=== PATIENT | male | born 1945 | race Caucasian/White ===

== ENCOUNTER 2017-01-03 16:10 | Observation (INO) | payer OTHER ==
--- NOTE | ~2017-01-03 | HP ---
History And Physical [place] [address] [facility] [place]. [address] NAME: [address]O L[address] : 45 STATUS : ADM Lindsey PAT#: [id number] AGE: 71 ADM/REG DATE : 01/03/17 MR#: [id number] REPORT SERV DATE: 01/04/17 DICTATED BY: KHADAR PARRISH DATE: 01/04/17 REPORT STATUS : Draft TRANSCRIBED BY: MODJagruti DATE: 01/04/17 DATE OF ADMISSION: 01/03/2017 [employer]IMARY [employer] ACCOUNT ASSISTANT: Felton Orosco M.D. CHIEF COMPLAINT: Exertional chest pain. HISTORY OF PRESENT ILLNESS: A very pleasant 71-year-old white male with known history of CAD, status post stents twice to RCA in 2008 and 2011 with subsequent CABG in 06/2015 x4 with PAIZ to LAD, vein graft to first diagonal, vein graft to the second obtuse marginal, and vein graft to PLV of RCA. The patient states that he was in his usual state of health, but has noticed approximately 10 days ago while in cardiac rehab some exertional chest pain that resolved with decreasing the exertion of his workout. He reports 2-3 subsequent episodes since that time. On 01/03, while walking [place] an incl[place], he became breathless and had some chest tightness and lightheadedness that was somewhat similar to previous events, but not as intense. He denies any nausea, diaphoresis, or belching. He does report some shortness of breath and lightheadedness. He did take one nitroglycerin yesterday with relief of his symptoms. At its most intense, he rated his chest discomfort a 2/10. At the time of interview in the [facility], he is pain free. The episode lasted approximately 5 minutes in duration and was relieved with nitroglycerin. Previous episodes have all been managed by reducing his exercise or with rest. Yesterday was his only use of nitroglycerin. The patient denies any personal history of myocardial infarction, stroke, DVT, or pulmonary embolus. The patient denies any recent fever or chills, no palpitations, no syncopal episodes. Denies PND or orthopnea. PAST MEDICAL HISTORY: 1. CAD. a. Stents to RCA in 2008. b. 06/[address] Castellanos with PAIZ to LAD, vein graft to first diagonal, vein graft to the second OM, and vein graft to PLV of RCA. 2. Hypertension. 3. Dyslipidemia. 4. GERD. 5. Denies diabetes. 6. Myelodysplastic syndrome followed by Dr. Jurado monthly. 7. Positive family history for early CAD. 8. Remote tobacco abuse. 9. History of gout. SURGICAL HISTORY: 1. CABG x4 by Dr. Castellanos 06/2015 as above. 2. Cervical neck surgery. 3. Left rotator cuff repair. 4. Cataract repair. History And Physical [address] [address] NAME: [address] : 45 STATUS : ADM Lindsey PAT#: [id number] AGE: 71 ADM/REG DATE : 01/03/17 MR#: [id number] REPORT SERV DATE: 01/04/17 DICTATED BY: KHADAR PARRISH DATE: 01/04/17 REPORT STATUS : Draft TRANSCRIBED BY: SIN DATE: 01/04/17 SOCIAL HISTORY: He is with two children. He is retired. He works out at cardiac rehab three times weekly. Most recently, on Friday without incident. He quit smoking in 1985. Occasionally consumes alcohol. Denies illicits. FAMILY HISTORY: Father of a heart attack and subsequent stroke at 73. Brother of a heart attack at 59. Sister of cardiac issues at the age of 89. REVIEW OF SYSTEMS: A 14-point review of systems performed, significant for HPI. No other contributory diagnoses identified. ALLERGIES: NO KNOWN DRUG ALLERGIES HOME MEDICATIONS: Home medicines; allopurinol 300 mg daily, aspirin 81 mg daily, atorvastatin 80 mg nightly, CoQ10 100 mg daily, Pepcid unknown dose daily, metoprolol tartrate 25 mg twice daily, multivitamin nightly. PHYSICAL EXAMINATION: VITAL SIGNS: Blood pressure 145/78, pulse 74, respirations 20, temperature 97.8, O2 saturation 98% on room air. Height 5 feet 10 inches, weight 202 pounds. GENERAL: Cooperative, in no apparent distress. HEENT: Pupils 2 mm, sclera nonicteric. Nares patent. Moist mucous membranes. No xanthelasma. NECK: Trachea midline, no thyromegaly. No JVD. No bruits. LYMPH: No cervical lymphadenopathy. No supraclavicular lymphadenopathy. RESPIRATORY: Unlabored respirations. Breath sounds clear bilaterally to posterior auscultation. No wheezes or rhonchi. CARDIOVASCULAR: Regular rate. No murmur, rub or gallop appreciated. Extremities without edema. Pulses 2+ bilaterally. ABDOMEN: Soft, nontender, nondistended, normal bowel sounds auscultated throughout. No organomegaly. SKIN: Warm, dry extremities. No pallor, or cyanosis. PSYCHIATRIC: Appropriate affect. Alert, oriented x3. LABORATORY DATA: Troponin less than 0.02 x3. Potassium 4.6, BUN 16, creatinine 1.59, glucose 87, magnesium 1.8. BNP 54. WBC 3.5, hemoglobin 11.2, hematocrit 35.4, platelet count 81,000. D-dimer 0.43. EKG; sinus rhythm, RBBB, occasional PVC. MPI 05/2015: Stage 2, 5. 02 minutes, 7 METs, 1.5 mm downsloping inferior leads. Cath 06/2015 (Dr. Myers): Multivessel CAD. Patent stent to RCA. EF 60%. Recommendation for CABG consult. CTA of chest: No PE. Evidence of CAD. There is some subtle abnormality around the pulmonary vein, this is probably artifact. Alternatively, however, we cannot totally exclude possibility of some filamentous vegetations arising from the pulmonary valve possibly on the basis of a non-infectious endocarditis. No pleural effusion. History And Physical [address] [address] NAME: [address] : 45 STATUS : ADM Lindsey PAT#: [id number] AGE: 71 ADM/REG DATE : 01/03/17 MR#: [id number] REPORT SERV DATE: 01/04/17 DICTATED BY: KHADAR PARRISH DATE: 01/04/17 REPORT STATUS : Draft TRANSCRIBED BY: MODL DATE: 01/04/17 ASSESSMENT AND PLAN: 1. Exertional chest pain in patient with a known coronary artery disease, multiple stents, and bypass surgery. The patient has been observed in the CP[facility] overnight to rule out myocardial infarction with serial enzymes and serial EKGs stable. Patient has been held n.p.o. We will proceed with MPI today. Have discussed with overseeing physician that given exertional component, the patient will undergo stress test today. If anything suggestive of ischemia, Cardiology referral will be initiated. Otherwise, the patient will be asked to follow up with his PCP and Dr. Orosco as appropriate. 2. CTA of chest, suggesting possible vegetation on pulmonary valve. I have discussed the findings with Dr. Fontanez who feels no further cardiac testing is necessary given those findings. 3. Coronary artery disease. Continue home medications. 4. Hypertension. Monitor blood pressure. Continue home medications. 5. Dyslipidemia. Continue statin. 6. Myelodysplastic syndrome followed by Dr. Jurado on a monthly basis. Hemoglobin 11.2, hematocrit 35.4. Followup with Dr. Jurado Per routine schedule. RON/MODL NADEGE Tello, SENIOR TELECOMMUNICATIONS TECHNICIAN-BC / [id number] CC: NADEGE Tello, SENIOR TELECOMMUNICATIONS TECHNICIAN-BC Kassandra Jaramillo Jr., M.D.
[~2017-01-03 16:10] MED LIST: ALEVE220 MG PO; ALTA2.5 PO; ARANESP100 IV; ASAB PO; ATEN25 PO; B COMPLETE PO; CO Q-10100 MG PO; FISH OIL1200 MG PO; FISH-EPA1000 MG PO; IMDUR30 PO; LIPITOR80 MG PO; LOP25 PO; NORCO1 TAB PO; NTG150 SL; PLAVIX PO; PROTONIX PO; Z300 PO
[2017-01-03 18:03] LABS: BASOPHILS 0 %; EOSINOPHILS 0 %; IMMATURE GRANULOCYTES 0.3 %; IMMATURE GRANULOCYTES ABSOLUTE 0.01 10/3/uL (0.0-0.11); LYMPHOCYTES 47.3 %; LYMPHOCYTES ABSOLUTE 1.66 10/3/uL (0.67-4.30); MEAN CORPUS HGB CONC 31.6 g/dL (32.0-36.0); MEAN CORPUSCULAR HEMOGLOB 32.2 pg (26.0-34.0); MEAN CORPUSCULAR VOLUME 101.7 fL (80-100); MONOCYTES 14.5 %; MONOCYTES ABSOLUTE 0.51 10/3/uL (0.21-1.20); NEUTROPHILS 37.9 %; NEUTROPHILS ABSOLUTE 1.33 10/3/uL (2.02-8.40)
[2017-01-03 18:12] LABS: ER CBC TAT 0 Hrs 13 Mins; HEMATOCRIT 35.4 % (40.0-51.0); HEMOGLOBIN 11.2 g/dL (13.6-17.8); MANUAL DIFF NO %; PLATELET COUNT 81 10/3/uL (150-400); RED CELL COUNT 3.48 10/6/uL (4.7-6.1); WHITE BLOOD CELLS 3.5 10/3/uL (4.5-10.5)
[2017-01-03 18:16] LABS: INTERNATIONAL NORMAL RATI 1.1 UNITS (-); PARTIAL THROMBO TIME 27.5 SEC (22.5-37.2); PROTIME (NOT ORD) 14.3 SEC (12.0-14.5)
[2017-01-03 18:20] LABS: BUN (BLOOD UREA NITROGEN) 16 MG/DL (6-23); CHEST PAIN PROFILE TAT 0 Hrs 21 Mins; CHLORIDE, SERUM 106 MMOL/L (96-112); CO2 (CARBON DIOXIDE) 28 MMOL/L (24-34); CREATININE 1.59 MG/DL (0.70-1.30); GFR AFRICAN AMERICAN 50 ML/MIN (>=60); GFR NON AFRICAN AMERICAN 43 ML/MIN (>=60); POTASSIUM, SERUM 4.6 MMOL/L (3.5-5.3); SODIUM, SERUM 142 MMOL/L (135-148); TROPONIN I <0.02 NG/ML (<0.05)
[2017-01-03 18:21] LABS: GLUCOSE, SERUM 87 MG/DL (60-99); PLATELET ESTIMATE DEC (ADEQUATE)
[2017-01-03 18:22] LABS: ANISOCYTOSIS 1+ (5-10/OIF) (0-5/OIF); TEARDROP SHAPED RBCS OCC (0-2/OIF)
[2017-01-04] MEDS ORDERED: ASAB PO (00:36)
[2017-01-04] MEDS ORDERED: Z300 PO (00:36)
[2017-01-04] MEDS ORDERED: LIPITOR80 MG PO (00:37)
[2017-01-04] MEDS ORDERED: CO Q-10100 MG PO (00:37)
[2017-01-04] MEDS ORDERED: LOP25 PO (00:37)
[2017-01-04] MEDS ORDERED: OCUVITE PO (00:38)
[2017-01-04] MEDS ORDERED: PEPCID40 MG PO (00:38)
[2017-01-10] MEDS ORDERED: NTG150 SL (07:42)
[2017-01-10] MEDS ORDERED: IMDUR30 PO (07:42)
== END 2017-01-04 14:24 | disposition home or self-care (01) ==
LOC: ER 16:10 → CDU1 16:11 → CDU2 01-04 00:56
PROVIDERS: Hospitalist
DX: R07.89 Other chest pain (principal); I25.10 Atherosclerotic heart disease of native coronary artery without angina pectoris; I10 Essential (primary) hypertension; E78.5 Hyperlipidemia, unspecified; D46.9 Myelodysplastic syndrome, unspecified; K21.9 Gastro-esophageal reflux disease without esophagitis; E78.00 Pure hypercholesterolemia, unspecified; J90 Pleural effusion, not elsewhere classified; Z82.49 Family history of ischemic heart disease and other diseases of the circulatory system; Z87.891 Personal history of nicotine dependence; Z82.3 Family history of stroke; Z79.82 Long term (current) use of aspirin; Z79.899 Other long term (current) drug therapy; Z95.1 Presence of aortocoronary bypass graft; Z98.890 Other specified postprocedural states
CPT/HCPCS: 71020; 71275; 78452; 80048; 83735; 83880; 84484; 85025; 85379; 85610; 85730; 93005; 93017; 99285; A9270-GY; A9502; G0378; Q9967